=== PATIENT | male | born 1970 | race African-American/Black ===

== ENCOUNTER 2017-01-03 09:56 | Emergency (ER) | payer SELFPAY ==
[2017-01-03 10:03] VITALS: BP 122/73; BMI 27.3
--- NOTE | 2017-01-03 10:20 | DR.GENAD ---
HPI - PCP Primary Care Physician: Diego - Complaint/Symptoms Chief Complaint Doctors Comments: Patient presents to the ED because he can not see. He states that he was diagnosed with DM a few years ago and stopped taking the medication because it made his glucose go down too low. He states that he has tingling of the fingers and toes for one month. Patient denies any respiratory problems. Chief Complaint:: "For about a month now I havn't been able to really see out of my left eye. Today it just got really bad and could barely see. I have been tingling in fingers and my toes for a while now though. I have had blood sugar problems for a while, but I havn't been taking any medicine for it." - Source History Provided: Patient - Mode of Arrival Mode of Arrival: Ambulatory - Timing Onset of Chief Complaint: 12/03/16 PMH - PMH Past Medical History: Yes Past Medical History: Arthritis, Diabetes, Hypertension Past Surgical History: Yes Surgical History: Other - Family History History of Family Medical Conditions: Yes Family Medical History: Diabetes Mellitus, Hypertension - Social History Does patient currently use any type of tobacco product: Yes Have you used tobacco products in the last 12 months: No Type of Tobacco Use: Cigarettes Does any household member use tobacco: No Alcohol Use: None Do you use any recreational Drugs:: No Lives With: Family Lives Where: Home - infectious screening In the last 2 months have you had wt loss of >10#?: NO Have you had fever, night sweats or hemotysis?: No Have you traveled outside the country in the last 6 months?: No Isolation: Standard ROS - Review of Systems Eyes: No Symptoms Reported ENTM: No Symptoms Reported Respiratoy: No Symptoms Reported Cardiovascular: No Symptoms Reported Gastrointestinal/Abdominal: No Symptoms Reported Genitourinary: No Symptoms Reported Neurological: No Symptoms Reported Musculoskeletal: No Symptoms Reported Integumentary: No Symptoms Reported Hematologic/Lymphatic: No Symptoms Reported Endocrine: No Symptoms Reported Psychiatric: No Symptoms Reported All Other Systems: Reviewed and Negative PE - Vital Signs Vitals: Temperature 98.7 F Pulse Rate 68 Respiratory Rate 18 Blood Pressure [Right Arm] 188/98 Blood Pressure 122/73 O2 Sat by Pulse Oximetry 98 - General Limitations: No Limitations General Appearance: Alert, In No Apparent Distress - Head Head Exam: Normal Inspection, Atraumatic - Eyes Eye exam: Normal Appearance, PERRL, EOMI - ENT ENT Exam: Normal Exam External Ear Exam: Normal External Inspection TM/Canal Exam: Bilateral Normal Nose Exam: Normal Nose Exam Mouth Exam: Normal Inspection Throat Exam: Normal Inspection - Neck Neck Exam: Normal Inspection, Full ROM - Chest Chest Inspection: Normal Inspection, Symmetric Chest Wall Rise - Respiratory Respiratory Exam: Normal Lung Sounds Bilat Respiratory Exam: Bilateral Clear to Auscultation - Cardiovascular Cardiovascular Exam: Regular Rate, Normal Rhythm - Abdominal Exam Abdominal Exam: Normal Inspection, Normal Bowel Sounds Abdominal Tenderness: negative: RUQ, RLQ, LUQ, LLQ, Epigastrium, Suprapubic, Diffuse, Mild, Moderate, Severe, Other - Extremities Extremities Exam: Normal Inspection - Back Back Exam: Normal Inspection - Neurologic Neurological Exam: Alert, Oriented X3, CN II-XII Intact - Psychiatric Psychiatric Exam: Normal Affect, Normal Mood - Skin Skin Exam: Warm, Dry, Intact Course - Treatment Treatment: NS x 1 and 8Units or regular insulin - Reevaluation 1st: Improved ROR - Labs Reviewed Result Diagrams: 01/03/17 10:40 01/03/17 10:40 Laboratory: WBC 12.1 X10^3/uL (3.6-10.0) H 01/03/17 10:40 RBC 4.58 X10^6/uL (4.7-6.0) L 01/03/17 10:40 Hgb 14.3 g/dL (13.5-18.0) 01/03/17 10:40 Hct 42.9 % (42.0-54.0) 01/03/17 10:40 MCV 93.8 fL (80.0-100.0) 01/03/17 10:40 MCH 31.2 pg (27.0-34.0) 01/03/17 10:40 MCHC 33.2 g/dL (33.0-35.0) 01/03/17 10:40 RDW 14.3 % (11.6-16.5) 01/03/17 10:40 Plt Count 294 X10^3/uL (150.0-450.0) 01/03/17 10:40 MPV 9.6 fL (7.4-11.0) 01/03/17 10:40 Neut % 68.1 % (42.0-75.0) 01/03/17 10:40 Lymph % 21.4 % (21.0-51.0) 01/03/17 10:40 [place] % 8.0 % (0.0-13.0) 01/03/17 10:40 Eos % 1.5 % (0.9-2.9) 01/03/17 10:40 Baso % 1.0 % (0.2-1.0) 01/03/17 10:40 Neut # 8.3 x10^3/uL (2.2-4.8) H 01/03/17 10:40 Lymph # 2.6 X10^3/uL (1.3-2.9) 01/03/17 10:40 [place] # 1.0 x10^3/uL (0.3-0.8) H 01/03/17 10:40 Eos # 0.2 x10^3/uL (0.0-0.2) 01/03/17 10:40 Baso # 0.1 X10^3/uL (0.0-0.1) 01/03/17 10:40 Absolute Nucleated RBC 0.0 /100WBC 01/03/17 10:40 Sodium 136 mmol/L (136-145) 01/03/17 10:40 Corrected Sodium 141 mmol/L (136-145) 01/03/17 10:40 Potassium 4.3 mmol/L (3.5-5.1) 01/03/17 10:40 Chloride 103 mmol/L (98-107) 01/03/17 10:40 Carbon Dioxide 27.7 mmol/L (21-32) 01/03/17 10:40 BUN 11 mg/dL (7-18) 01/03/17 10:40 Creatinine 1.20 mg/dL (0.70-1.30) 01/03/17 10:40 Est GFR (MDRD) Af Amer > 60 (>60) 01/03/17 10:40 Est GFR (MDRD) Non-Af > 60 (>60) 01/03/17 10:40 Glucose 307 mg/dL (65-99) H 01/03/17 10:40 POC Glucose (mg/dL) 216 mg/dL (65-99) H 01/03/17 12:54 Hemoglobin A1c 11.2 % (4.5-6.2) H 01/03/17 10:40 Calcium 8.8 mg/dL (8.5-10.1) 01/03/17 10:40 Corrected Calcium TNP 01/03/17 10:40 Phosphorus 3.3 mg/dL (2.6-4.7) 01/03/17 10:40 Total Bilirubin 0.60 mg/dL (0.2-1.0) 01/03/17 10:40 AST 18 Units/L (15-37) 01/03/17 10:40 ALT 32 Units/L (12-78) 01/03/17 10:40 Alkaline Phosphatase 61 Units/L (46-116) 01/03/17 10:40 Total Protein 7.1 g/dL (6.4-8.2) 01/03/17 10:40 Albumin 3.7 g/dL (3.4-5.0) 01/03/17 10:40 Globulin 3.4 g/dL (2.5-4.5) 01/03/17 10:40 Albumin/Globulin Ratio 1.1 Ratio (1.1-2.1) 01/03/17 10:40 Specimen Type Clean catch urine 01/03/17 11:25 Urine Color Dark yellow (YELLOW) 01/03/17 11:25 Urine Appearance Clear (CLEAR) 01/03/17 11:25 Urine pH 5.0 (5.0 - 8.0) 01/03/17 11:25 Ur Specific [place] 1.015 (1.000-1.030) 01/03/17 11:25 Urine Protein 1+ (NEGATIVE) 01/03/17 11:25 Urine Glucose (UA) 4+ (NEGATIVE) 01/03/17 11:25 Urine Ketones Negative (NEGATIVE) 01/03/17 11:25 Urine Occult Blood 1+ (NEGATIVE) 01/03/17 11:25 Urine Nitrite Negative (NEGATIVE) 01/03/17 11:25 Urine Bilirubin Negative (NEGATIVE) 01/03/17 11:25 Urine Acetone Small (NEGATIVE) 01/03/17 11:25 Urine Urobilinogen Normal (NORMAL) 01/03/17 11:25 Ur Leukocyte Esterase Negative (NEGATIVE) 01/03/17 11:25 Urine RBC 0-1 /HPF (NEGATIVE) 01/03/17 11:25 Urine WBC 0-3 /HPF (NEGATIVE) 01/03/17 11:25 Ur Squamous Epith Cells Rare /HPF (NEGATIVE) 01/03/17 11:25 Urine Bacteria Negative /HPF (NEGATIVE) 01/03/17 11:25 Urine Mucus Few /HPF (NEGATIVE) 01/03/17 11:25 Ur Culture Indicated? No/not indicated 01/03/17 11:25 - Diagnosis Discharge Problem: Diabetes mellitus Qualifiers: Diabetes mellitus type: type 2 Diabetes mellitus complication status: with hyperglycemia Diabetes mellitus fci insulin use: without intermediate designer use Qualified Code(s): E11.65 - Type 2 diabetes mellitus with hyperglycemia - Discharge Plan Condition: Stable - Follow ups/Referrals Follow ups/Referrals: Zoran Cortez [Primary Care Provider] - 3 days - Instructions
[2017-01-03] MEDS ORDERED: NS 1000 ML 1,000 ML ONE (10:30)
[2017-01-03] MEDS ORDERED: NS 1000 ML 1,000 ML IV ONE (10:36)
[2017-01-03 11:01] LABS: BASOPHILS # (AUTO) 0.1 X10^3/uL (0.0-0.1); EOSINOPHILS # (AUTO) 0.2 x10^3/uL (0.0-0.2); EOSINOPHILS % (AUTO) 1.5 % (0.9-2.9); HEMATOCRIT 42.9 % (42.0-54.0); HEMOGLOBIN 14.3 g/dL (13.5-18.0); LYMPHOCYTES # (AUTO) 2.6 X10^3/uL (1.3-2.9); LYMPHOCYTES % (AUTO) 21.4 % (21.0-51.0); MEAN CORPUSCULAR HEMOGLOBIN 31.2 pg (27.0-34.0); MEAN CORPUSCULAR HGB CONC 33.2 g/dL (33.0-35.0); MEAN CORPUSCULAR VOLUME 93.8 fL (80.0-100.0); MEAN PLATELET VOLUME 9.6 fL (7.4-11.0); NEUTROPHILS # (AUTO) 8.3 x10^3/uL (2.2-4.8); NEUTROPHILS % (AUTO) 68.1 % (42.0-75.0); PLATELET COUNT 294 X10^3/uL (150.0-450.0); RED BLOOD COUNT 4.58 X10^6/uL (4.7-6.0); RED CELL DISTRIBUTION WIDTH 14.3 % (11.6-16.5); WHITE BLOOD COUNT 12.1 X10^3/uL (3.6-10.0)
[2017-01-03 11:11] LABS: ALANINE AMINOTRANSFERASE 32 Units/L (12-78); ALBUMIN 3.7 g/dL (3.4-5.0); ALKALINE PHOSPHATASE 61 Units/L (46-116); ASPARTATE AMINO TRANSFERASE 18 Units/L (15-37); BLOOD UREA NITROGEN 11 mg/dL (7-18); CALCIUM 8.8 mg/dL (8.5-10.1); CARBON DIOXIDE 27.7 mmol/L (21-32); CHLORIDE 103 mmol/L (98-107); COR NA(FOR HYPERGLY) 141 mmol/L (136-145); PHOSPHORUS 3.3 mg/dL (2.6-4.7); SODIUM 136 mmol/L (136-145); TOTAL PROTEIN 7.1 g/dL (6.4-8.2); eGFR BLACK RACES > 60 (>60); eGFR NON BLACK RACES > 60 (>60)
[2017-01-03 11:32] LABS: HEMOGLOBIN A1C 11.2 % (4.5-6.2)
[2017-01-03 11:33] LABS: BILIRUBIN,URINE NEGATIVE (NEGATIVE); BLOOD/HEMOGLOBIN,URINE 1+ (NEGATIVE); GLUCOSE, URINE 4+ (NEGATIVE); KETONES,URINE NEGATIVE (NEGATIVE); LEUKOCYTE ESTERASE ,URINE NEGATIVE (NEGATIVE); NITRITES,URINE NEGATIVE (NEGATIVE); PROTEIN,URINE 1+ (NEGATIVE); UROBILINOGEN,URINE NORMAL (NORMAL)
[2017-01-03] MEDS ORDERED: HumuLIN R ONE (11:42)
[2017-01-03] MEDS ORDERED: HumuLIN R SUBCUT ONE (11:44)
[2017-01-03 11:46] LABS: APPEARANCE,URINE CLEAR (CLEAR); BACTERIA,URINE NEGATIVE /HPF (NEGATIVE); COLOR,URINE DARK YELLOW (YELLOW); RBC,URINE 0-1 /HPF (NEGATIVE); SQUAMOUS EPITHELIAL CELL,UR RARE /HPF (NEGATIVE)
[2017-01-03 11:47] LABS: MUCUS,URINE FEW /HPF (NEGATIVE)
[2017-01-03] MEDS ORDERED: SNACK - Diabetic Appropriate PO SCH (20:00)
== END 2017-01-03 13:08 | disposition home or self-care (01) ==
LOC: ER 10:10
DX: E11.65 Type 2 diabetes mellitus with hyperglycemia (principal)
CPT/HCPCS: 36415; 80053; 81001; 82009; 83036; 84100; 85025; 96365; 96372; 99283; J1815